=== PATIENT | male | born 1960 | race Two or more races ===

== ENCOUNTER → 2025-01-16 | Outpatient (CLI) | payer MEDICARE, SELFPAY ==
--- NOTE | 2025-01-16 13:22 | EKG_ITS ---
[facility] Test Date: 2025-01-16 Pat Name: DEBBY ALFONSO Department: Room: - Gender: Male [employer]: KERRI : 1960 Requested By: Alonzo Allen Order Number: [id number] Reading MD: Alonzo Allen Measurements Intervals [place] Rate: 49 P: 25 MO: 166 QRS: 25 QRSD: 81 T: 30 QT: 445 QTc: 402 Interpretive Statements SINUS BRADYCARDIA Compared to ECG 02/08/2024 11:10:30 No significant changes /[id number].pdf
== END | disposition home or self-care (01) ==
PROVIDERS: PCP Internal Medicine; Referring Provider Colon & Rectal Surgery; Visit Provider Colon & Rectal Surgery
DX: I10 Essential (primary) hypertension (principal)
CPT/HCPCS: 93005